=== PATIENT | female | born 1940 | race Caucasian/White ===

== ENCOUNTER → 2017-05-19 | Day surgery (SDC) | payer MEDICARE, BC ==
[~2017-05-19] VITALS: Ht 170.2 cm; Wt 72.7 kg
[~2017-05-19] MED LIST: ASPIR 8181 MG PO; BYSTOLIC5 MG PO; CALCIUM CARBON600 MG PO; CENTRUM SILVER1 EAC4 PO; CO Q-10300 MG PO; FISH OIL 1,4001 EACH PO; FISH OIL 11600 MG/5 PO; FLONASE 50 MCG/16 GM NOSE; HYDRODIURIL12.5 MG PO; LIPITOR10 MG PO; NORCO 5-325 TA1 EACH PO; OCUVITE WITH L1 EACH PO; SINGULAIR10 MG PO; VITAMIN D-32000 UNI1 PO
--- NOTE | ~2017-05-19 | OR ---
PATIENT'S NAME: [facility] AGE: 76 Y [address] ROOM: [place] [address] LOCATION: [facility] [place] ADMIT DATE: 05/19/2017 OR/Procedure Report DISCHARGE DATE: FAMILY PHYSICIAN: Huy Wise MD ATTENDING PHYSICIAN: Dread Whitehead SURGEON: Dread Whitehead MD TIPPLE OILER: Shira Waterman PA-C DATE OF PROCEDURE: 05/19/2017 PREOPERATIVE DIAGNOSIS: Invasive left breast cancer. POSTOPERATIVE DIAGNOSIS: Invasive left breast cancer. PROCEDURES PERFORMED: 1. Left breast partial mastectomy. 2. Left axillary sentinel lymph node biopsy. 3. Injection of blue dye. FINDINGS: The previously placed clip was present within our surgical specimen. ESTIMATED BLOOD LOSS: Less than 50 mL. COMPLICATIONS: None. INDICATIONS: The patient is a 76-year-old female who presented with an abnormal mammogram. She subsequently had a biopsy that revealed an invasive ductal carcinoma. We discussed various options with her. Ultimately, she wished to proceed with a left breast partial mastectomy and sentinel node biopsy. We discussed the risks, benefits, and alternatives with the patient, and she elected to proceed. DESCRIPTION OF PROCEDURE: The patient was taken into the operating room. She was placed supine, given IV sedation, and subsequently intubated. Preoperatively, she was injected with radiocolloid by Nuclear Medicine. We subsequently injected 10% solution of methylene blue in the subareolar region. Her breast was prepped with ChloraPrep and sterilely draped. Using the Neoprobe for guidance, an incision was created in the left axilla and carried into the subcutaneous tissues and down to the axillary fat pad using electrocautery. We were able to identify several sentinel lymph nodes. The highest counts of these were approximately 3000. A second node was identified with counts of 1800, and a third lymph node with counts of 500. These were sent as sentinel lymph nodes. The axilla was further inspected with the Neoprobe. Background counts were then less than 100. The operative field was inspected. It was hemostatic. Deep dermal layers were approximated with 3-0 PATIENT'S NAME: [facility] AGE: 76 Y [address] ROOM: [place] [address] LOCATION: [facility] [place] ADMIT DATE: 05/19/2017 OR/Procedure Report DISCHARGE DATE: FAMILY PHYSICIAN: Huy Wise MD ATTENDING PHYSICIAN: Dread Whitehead Vicryl suture and skin closure with 4-0 Monocryl suture. Steri-Strips and sterile dressings were placed over this. Following this, the breast lump was not palpable, but we were able to localize this with ultrasound guidance. Once localized, this appeared to sit relatively close to the chest wall. An incision was then created overlying this area. The area was dissected around circumferentially using electrocautery. Once within the breast parenchyma, this area was able to be palpated. We dissected circumferentially around this lesion all the way to the chest wall. This was removed. It was marked for orientation and was sent for x-ray to assure the site marker was within the specimen. This was confirmed by x-ray. The operative field was inspected. It was hemostatic. Deep dermal layers were approximated with 3-0 Vicryl suture and skin closure with 4-0 Monocryl suture. Steri-Strips and sterile dressings were placed. The patient was extubated and sent to Recovery in good condition. Shira Waterman was necessary for retraction, visualization, and hemostasis throughout the case. DREAD WHITEHEAD MD BJO/modl /[id number] d: 05/19/17 1243 t: 05/26/17 1730, OPERATIVE SUMMARY
[2017-05-19 07:10] LABS: ALBUMIN 3.7 gm/dL (3.5-5.0); ALK PHOS 86 IU/L (33-138); ALT 33 IU/L (12-78); ANION GAP 10.7 (10.0-19.0); AST 26 IU/L (10-40); BLOOD UREA NITROGEN 17 mg/dL (6-24); CALCIUM 9.1 mg/dL (8.5-10.5); CHLORIDE 107 mMol/L (96-110); CO2 27 mMol/L (22-32); CREATININE 0.7 mg/dL (0.5-1.1); ESTIMATED GFR (MDRD EQUATION) > 60; POTASSIUM 3.7 mMol/L (3.7-5.1); SODIUM 141 mMol/L (135-145); TOTAL BILIRUBIN 0.6 mg/dL (0.0-1.5); TOTAL PROTEIN 6.8 g/dL (6.0-8.4)
== END | disposition disaster alternative care site (69) ==
LOC: GOPD 05-16 → GSDC 06:15 → GOPD 06:30
PROVIDERS: Surgery
PROC: 0HBU0ZZ Excision of Left Breast, Open Approach (ICD-10-PCS; principal; 2017-05-19)
PROC: 0HBU0ZX Excision of Left Breast, Open Approach, Diagnostic (ICD-10-PCS; 2017-05-19)
DX: C50.912 Malignant neoplasm of unspecified site of left female breast (principal); M85.80 Other specified disorders of bone density and structure, unspecified site; E78.5 Hyperlipidemia, unspecified; I10 Essential (primary) hypertension; Z98.51 Tubal ligation status; Z90.49 Acquired absence of other specified parts of digestive tract; Z98.890 Other specified postprocedural states; Z79.82 Long term (current) use of aspirin; Z79.899 Other long term (current) drug therapy
CPT/HCPCS: A9520; J0690; J2001; J3010; J7030; Q9968

== ENCOUNTER → 2017-05-31 | Day surgery (SDC) | payer MEDICARE, BC ==
[~2017-05-31] VITALS: Ht 170.2 cm; Wt 73.2 kg
--- NOTE | ~2017-05-31 | OR ---
PATIENT'S NAME: [facility] AGE: 76 Y [address] ROOM: [place] [address] [place] [facility] [place]: 05/31/2017 OR/Procedure Report DISCHARGE DATE: FAMILY PHYSICIAN: Huy Wise MD ATTENDING PHYSICIAN: Dread Whitehead SURGEON: Dread Whitehead MD LOADER SEMICONDUCTOR DIES: Shira Waterman PA-C. 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 POSTOPERATIVE DIAGNOSIS: Invasive left breast carcinoma, status post lumpectomy with margins positive for ductal carcinoma in situ. PROCEDURE PERFORMED: Re-excision, lumpectomy margin. FINDINGS: No gross tumor was visible. ESTIMATED BLOOD LOSS: Minimal. COMPLICATIONS: None. INDICATIONS: The patient is a 76-year-old female who had lumpectomy. The invasive cancer was totally excised; however, she had margin positive for DCIS. We discussed re-excision, the risks, benefits, and alternatives, and she elected to proceed. DESCRIPTION OF PROCEDURE: The patient was taken to the operating room. She was given IV sedation, and her chest was cleansed with ChloraPrep and sterilely draped. An incision was created overlying her previous incision. The seroma was present, this was evacuated. The margins were positive on the medial side. The margin extending from the inferior margin all the way to the superior margin was excised on the medial side down to the chest wall and removed using electrocautery. This was marked for orientation and sent for pathologic evaluation. There was no gross tumor. The operative field was inspected. It appeared hemostatic. Deep dermal layers were approximated with 3-0 Vicryl suture and skin closed with 4-0 Monocryl suture. Steri-Strips and sterile dressings were placed. She tolerated this well. DREAD WHTIEHEAD MD PATIENT'S NAME: [facility] AGE: 76 Y [address] ROOM: [place] [address] [place] [facility] [place]: 05/31/2017 OR/Procedure Report DISCHARGE DATE: FAMILY PHYSICIAN: Huy Wise MD ATTENDING PHYSICIAN: Dread Whitehead/pardeep /[id number] d: 05/31/172216 t: 06/09/17 1944, OPERATIVE SUMMARY
== END | disposition disaster alternative care site (69) ==
LOC: GSDC 08:59
PROC: 0HBU0ZX Excision of Left Breast, Open Approach, Diagnostic (ICD-10-PCS; principal; 2017-05-31)
DX: C50.912 Malignant neoplasm of unspecified site of left female breast (principal); M85.80 Other specified disorders of bone density and structure, unspecified site; G89.29 Other chronic pain; M54.5 Low back pain; E78.5 Hyperlipidemia, unspecified; I10 Essential (primary) hypertension; Z90.49 Acquired absence of other specified parts of digestive tract; Z98.51 Tubal ligation status; Z98.890 Other specified postprocedural states; Z79.899 Other long term (current) drug therapy
CPT/HCPCS: J0690; J1100; J2001; J2250; J2405; J7030